=== PATIENT | female | born 1980 | race Caucasian/White ===

== ENCOUNTER 2023-04-28 08:32 | Outpatient (CLI) | payer OTHER, SELFPAY ==
--- NOTE | 2023-04-28 08:45 | CRLHL7_ITS ---
For Patients: As a result of the Cures Act, medical imaging exams and procedure reports are released immediately into your electronic medical record. You may view this report before your referring provider. If you have questions, please contact your health care provider. DIGITAL DIAGNOSTIC RIGHT MAMMOGRAM USING TOMOSYNTHESIS AND COMPUTER-AIDED DETECTION RIGHT BREAST ULTRASOUND INDICATION: Follow up a focal asymmetric density in the RIGHT breast. TECHNIQUE: Spot compression view of the RIGHT breast in the CC projection. A true ML view of the RIGHT breast was obtained. COMPARISON: Comparison April 18, 2023. FINDINGS: Breast composition: The breasts are heterogeneously dense, which may obscure small masses. Persistent nodule in the central upper RIGHT breast at the 12 o`clock position 6 cm from the nipple. Ultrasound is recommended and will be performed subsequently. Directed right breast ultrasound with this radiologist present. There is an oval-shaped cyst measuring 1.1 x 0.7 x 1.2 cm. This corresponds to the density identified on the recent mammogram and today`s diagnostic images. These findings were discussed in detail with the patient. No further workup or follow up is recommended. Annual mammography is recommended. IMPRESSION: 1. 1.1 x 0.7 x 1.2 cm oval shape cyst 12 o`clock position 6 cm from the RIGHT nipple. 2. Annual mammography recommended. BI-RADS Category 2: Benign A lay language report of this examination will be provided to the patient. Ladarius Tyson MD @04/28/2023 10:04:59 AM PT/Dictated by: Ladarius Tyson MD @ 04/28/2023 10:05:00 AM (Electronically Signed)
--- NOTE | 2023-04-28 09:15 | CRLHL7_ITS ---
For Patients: As a result of the Cures Act, medical imaging exams and procedure reports are released immediately into your electronic medical record. You may view this report before your referring provider. If you have questions, please contact your health care provider. PLEASE SEE DIGITAL DIAGNOSTIC RIGHT MAMMOGRAM PERFORMED SAME DAY CRL:edgar hernández/Dictated by: Ladarius Tyson MD @ 04/28/2023 10:05:00 AM (Electronically Signed)
== END 2023-04-28 08:33 | disposition home or self-care (01) ==
PROVIDERS: PCP Physician Assistant Medical; Visit Provider Physician Assistant
DX: R92.8 Other abnormal and inconclusive findings on diagnostic imaging of breast (principal); N63.10 Unspecified lump in the right breast, unspecified quadrant
CPT/HCPCS: 76642; 77065; G0279

== ENCOUNTER 2023-08-14 15:12 | Outpatient (CLI) | payer OTHER, SELFPAY | END 2023-08-14 15:13 | disposition home or self-care (01) | PROVIDERS: PCP Physician Assistant Medical; Visit Provider Physician Assistant Medical | DX: E78.5 Hyperlipidemia, unspecified (principal); E78.1 Pure hyperglyceridemia; R73.03 Prediabetes; N92.0 Excessive and frequent menstruation with regular cycle | CPT/HCPCS: 80053; 80061; 84443 ==

== ENCOUNTER 2023-10-08 09:58 | Outpatient (CLI) | payer OTHER, SELFPAY | END 2023-10-08 09:59 | disposition home or self-care (01) | PROVIDERS: PCP Physician Assistant Medical; Visit Provider Physician Assistant Medical | DX: N92.0 Excessive and frequent menstruation with regular cycle (principal); R53.83 Other fatigue | CPT/HCPCS: 80053; 82607; 83540; 83550; 84443; 86703; 86803 ==

== ENCOUNTER 2023-10-15 10:30 | Outpatient (CLI) | payer OTHER, SELFPAY ==
[2023-10-15 23:49] LABS: Chlamydia DNA Amplified* NOT DETECTED (No Detected); GC DNA Amplified* NOT DETECTED (No Detected)
== END 2023-10-15 10:31 | disposition home or self-care (01) ==
PROVIDERS: PCP Physician Assistant Medical; Visit Provider Physician Assistant Medical
DX: D69.6 Thrombocytopenia, unspecified (principal); D64.9 Anemia, unspecified; Z11.3 Encounter for screening for infections with a predominantly sexual mode of transmission
CPT/HCPCS: 86618; 87468; 87469; 87484; 87491; 87591; 87798

== ENCOUNTER 2023-10-16 03:30 | Outpatient (CLI) | payer OTHER, SELFPAY | END 2023-10-16 03:31 | disposition home or self-care (01) | LOC: NFLDREF 14:49 | PROVIDERS: PCP Physician Assistant Medical; Referring Provider Physician Assistant Medical; Visit Provider Physician Assistant Medical | DX: D64.9 Anemia, unspecified (principal); K21.9 Gastro-esophageal reflux disease without esophagitis | CPT/HCPCS: 87338 ==

== ENCOUNTER 2023-10-23 10:43 | Outpatient (CLI) | payer OTHER, SELFPAY ==
--- NOTE | 2023-10-23 11:00 | CRLHL7_ITS ---
For Patients: As a result of the Century Cures Act, medical imaging exams and procedure reports are released immediately into your electronic medical record. You may view this report before your referring provider. If you have questions, please contact your health care provider. INDICATION: IRREGULAR MENSTRUATION COMPARISON: none TECHNIQUE: 2D michelle scale and color Doppler images were acquired of the pelvis using a transabdominal and transvaginal approach. FINDINGS: Sonographic images demonstrate a normal size and smooth outer contour of the uterus. Uterus measures 7.8 cm in length by 3.8 cm in AP diameter by 4.7 cm in transverse dimension. Caesarean section scar. The endometrial lining measures 9 mm in composite thickness. Hyperechoic nodule within the endometrium measuring 10 x 5 x 10 millimeters. Endometrial fluid noted. Cervical nabothian cysts. The right ovary measures 3.6 x 2.1 x 2.0 cm in size and the left ovary measures 2.2 x 1.5 x 1.7 cm. The ovaries demonstrate normal arterial and venous blood flow on color Doppler analysis. There are no suspicious fluid collections within the cul-de-sac. IMPRESSION: Endometrial polyp measuring 1 cm. Dictated by Jamie Veloz MD @ 10/23/2023 11:49:05 AM (Electronically Signed)
== END 2023-10-23 10:44 | disposition home or self-care (01) ==
LOC: US 10:44
PROVIDERS: PCP Physician Assistant Medical; Visit Provider Physician Assistant Medical
DX: N92.6 Irregular menstruation, unspecified (principal); N84.0 Polyp of corpus uteri
CPT/HCPCS: 76830; 76856

== ENCOUNTER 2023-12-23 06:28 | Day surgery (SDC) | payer OTHER, SELFPAY ==
[2023-12-23 06:49] VITALS: BP 113/85; PULSE 85; RESP 16; TEMP 36.7; O2SAT 96; BMI 26.6
[2023-12-23 06:59] LABS: Ur HCG Qualitative* Negative (Negative)
[2023-12-23] MEDS: SODIUM CHLORIDE 0.9 % (FLUSH) 10 ML SYRINGE IVF (07:15)
[2023-12-23] MEDS: LACTATED RINGERS 1000 ML 1,000 ML 100 ML IV (07:15)
[2023-12-23] MEDS: SCOPOLAMINE 1 MG/3 DAY PATCH 1 PATCH TRANSDERMA (07:51)
--- NOTE | 2023-12-23 08:34 | W.ANESCHARGE ---
Anesthesia Charges Start Date/Time Anesthesia Start Date: 12/23/23 Anesthesia Start Time: 08:19 Stop Date/Time Anesthesia Stop Date: 12/23/23 Anesthesia Stop Time: 09:00
[2023-12-23] MEDS: BUPIVACAINE 0.25% 30 ML 10 ML INJECTION (08:38)
[2023-12-23] MEDS: LIDOCAINE 1% MDV 10 ML INJECTION (08:38)
--- NOTE | 2023-12-23 08:52 | P.GYNPRC_ITS ---
Procedure Note Date of procedure: 12/23/23 Pre-op diagnosis: Irregular heavy menses. Endometrial polyp by ultrasound. Post-op diagnosis: same Procedure: 1. Hysteroscopy. 2. D&C. 3. Polypectomy. 4. Mirena IUD insertion. Anesthesia: MAC and local (Paracervical block) Complications: None. Surgeon: Layne Westbrook MD Estimated blood loss (mL): 10 Pathology: specimen obtained, sent to pathology (Endometrial polyp and endometrial curettings sent as a single specimen.) Condition: stable Disposition: same day Findings: Endometrial polyp arising from the fundus. Normal tubal ostia bilaterally. Procedure Description: After obtaining informed consent, the patient was taken to the operating room where she received monitored anesthesia care. She was prepared and draped in the normal sterile fashion, in the dorsal lithotomy position. An open-sided bivalve speculum was introduced into the vagina and the cervix visualized. The anterior lip of the cervix was grasped with a single-tooth tenaculum for traction. A paracervical block was then administered using a total of 20 mL of a 50/50 mixture of 0.25% Marcaine and 1% lidocaine plain. The uterus was gently sounded. Sound length was 8 cm. The cervix was gently dilated to a #6 Hegar dilator. A hysteroscope was then advanced under direct visualization through the cervix into the uterine cavity. Sterile normal saline was used as distending medium. The uterine cavity was carefully inspected with the findings noted above. Pictures were taken for documentation purposes. The TruClear morcellator was inserted through the operating channel in the hysteroscope. The morcellator was used to remove the polyp in its entirety. The hysteroscope was then removed. The endometrial lining was then sharply curetted. A Mirena IUD was set to a length of 8 cm, the introducer was inserted through the cervical os to the level of the fundus, and the IUD was deployed. The introducer was re moved. The strings were trimmed to a 3 cm length. The tenaculum was removed. There was little bleeding from the tenaculum site, which was controlled with topical application of silver nitrate and direct pressure sponge stick. All instruments were then removed. The patient tolerated the procedure well. Sponge, lap, needle, and instrument counts reported as correct x2. The patient was taken to the recovery room awake in a stable condition. She received 30 mg of IV Toradol at the conclusion of the procedure.
[2023-12-23 09:00] VITALS: BP 143/109; PULSE 67; RESP 16; TEMP 36.8; O2SAT 98
[2023-12-23 09:05] VITALS: BP 134/90; PULSE 67; O2SAT 99
[2023-12-23 09:15] VITALS: BP 111/87; PULSE 77; RESP 16; O2SAT 99
[2023-12-23 09:30] VITALS: BP 102/88; PULSE 82; RESP 16; O2SAT 99
[2023-12-23] MEDS: ACETAMINOPHEN 500 MG TABLET 1000 MG PO (09:30)
[2023-12-23 09:50] VITALS: BP 119/87; PULSE 80; RESP 16; TEMP 36.7; O2SAT 98
--- NOTE | 2023-12-23 10:08 | W.ANESCHARGE ---
Anesthesia Charges Start Date/Time Anesthesia Start Date: 12/23/23 Anesthesia Start Time: 08:19 Stop Date/Time Anesthesia Stop Date: 12/23/23 Anesthesia Stop Time: 09:00
== END 2023-12-23 09:57 | disposition home or self-care (01) ==
PROVIDERS: PCP Physician Assistant Medical; Visit Provider Obstetrics & Gynecology
PROC: 0UDB8ZZ Extraction of Endometrium, Via Natural or Artificial Opening Endoscopic (ICD-10-PCS; CPT 58558; principal; 2023-12-23 08:05)
DX: N92.1 Excessive and frequent menstruation with irregular cycle (principal); N84.0 Polyp of corpus uteri; Z30.430 Encounter for insertion of intrauterine contraceptive device
CPT/HCPCS: 58558; 58300; 00952; 81025; 88305; A9270; J0665; J1885; J2250; J2405; J2704; J3010; J7120; J7298

== ENCOUNTER 2024-04-01 12:44 | Outpatient (RCR) | payer OTHER, SELFPAY ==
--- NOTE | 2024-02-04 15:14 | ONC.NURNOTE ---
Pt. left message to cancel her appointment with Dr. Green on 02/05/24, mortgage or loan underwriter left message on her voicemail to call and reschedule.
--- NOTE | 2024-04-29 12:30 | ONC.NURNOTE ---
Addendum entered by Cassi Ross RN 05/06/24 10:38: 6 months Original Note: Patient called with recommendations from Dr. Green is to come back in with repeat CBC and US Patient understands and will need visit in September 2024
== END 2024-09-28 23:59 | disposition home or self-care (01) ==
LOC: CCIC 12:44
PROVIDERS: PCP Physician Assistant Medical; Visit Provider Internal Medicine Hematology & Oncology
DX: D69.6 Thrombocytopenia, unspecified (principal)
CPT/HCPCS: 36415; 85025; 88112; 88184; 88185; 99202; 99203

== ENCOUNTER 2024-04-20 10:09 | Outpatient (CLI) | payer OTHER, SELFPAY ==
--- NOTE | 2024-04-20 10:15 | CRLHL7_ITS ---
For Patients: As a result of the Century Cures Act, medical imaging exams and procedure reports are released immediately into your electronic medical record. You may view this report before your referring provider. If you have questions, please contact your health care provider. BILATERAL SCREENING MAMMOGRAM WITH COMPUTER-AIDED DETECTION AND TOMOSYNTHESIS TECHNIQUE: CC and MLO views were obtained. These mammographic images have been obtained using full-field digital technique. These mammographic images were interpreted with the benefit of computer-aided detection. Breast Tomosynthesis was used in this interpretation. COMPARISON FILM: 04/18/23, 03/07/22, 02/19/21. FINDINGS: The breasts are heterogeneously dense, which may obscure small masses IMPRESSION: There is no radiographic evidence for malignancy. ASSESSMENT: BI-RADS Category 1: Negative RECOMMENDATION: Routine screening mammogram in 1 year. A lay language report of this examination will be provided to the patient. Jamie Veloz M.D. Diagnostic Radiologist [email or web address] ANUP/Dictated by: Jamie Veloz MD @ 04/20/2024 11:12:00 AM (Electronically Signed)
== END 2024-04-20 10:10 | disposition home or self-care (01) ==
LOC: MAMMO 10:10
PROVIDERS: PCP Physician Assistant Medical; Visit Provider Physician Assistant Medical
DX: Z12.31 Encounter for screening mammogram for malignant neoplasm of breast (principal); R92.2 Inconclusive mammogram
CPT/HCPCS: 77063; 77067

== ENCOUNTER 2024-04-22 14:41 | Outpatient (CLI) | payer OTHER, SELFPAY ==
--- NOTE | 2024-04-22 15:00 | CRLHL7_ITS ---
For Patients: As a result of the Century Cures Act, medical imaging exams and procedure reports are released immediately into your electronic medical record. You may view this report before your referring provider. If you have questions, please contact your health care provider. Indication: Thrombocytopenia. Evaluate spleen. Technique: Ultrasound examination the spleen was performed with a sector scanner. Comparison: None available Findings: The spleen is mildly enlarged, measuring 13.7 x 9.9 x 7.1 centimeters. There is no sign of any splenic mass. The vascular structures in the splenic hilum are normal in appearance. Impression: Mild splenomegaly. No sign of any splenic mass. Dictated by Luis Daniel Aceves MD @ 04/25/2024 11:21:15 PM (Electronically Signed)
== END 2024-04-22 14:42 | disposition home or self-care (01) ==
LOC: US 14:42
PROVIDERS: PCP Physician Assistant Medical; Visit Provider Internal Medicine Hematology & Oncology
DX: D69.6 Thrombocytopenia, unspecified (principal); R16.1 Splenomegaly, not elsewhere classified
CPT/HCPCS: 76705

== ENCOUNTER 2024-09-16 10:30 | Outpatient (CLI) | payer OTHER, SELFPAY | END 2024-09-16 10:31 | disposition home or self-care (01) | PROVIDERS: PCP Physician Assistant Medical; Visit Provider Physician Assistant Medical | DX: D64.9 Anemia, unspecified (principal); R73.03 Prediabetes; Z13.29 Encounter for screening for other suspected endocrine disorder; Z13.21 Encounter for screening for nutritional disorder | CPT/HCPCS: 80053; 80061; 82306; 83540; 83550; 84443; 86231; 86258; 86364 ==

== ENCOUNTER 2024-09-23 09:21 | Outpatient (CLI) | payer OTHER, SELFPAY ==
--- NOTE | 2024-09-23 10:00 | CRLHL7_ITS ---
For Patients: As a result of the Century Cures Act, medical imaging exams and procedure reports are released immediately into your electronic medical record. You may view this report before your referring provider. If you have questions, please contact your health care provider. INDICATION: Right abdominal mass. Diarrhea and anemia. TECHNIQUE: Volumetric helical scanning of the abdomen and pelvis was performed with 86 cc of Isovue 370 contrast material IV. Coronal and sagittal reconstructions were obtained. COMPARISON: None. FINDINGS: No abdominal mass or hernia is demonstrated. There is no evidence of bowel obstruction or inflammation. The appendix is normal. The liver is normal in size, shape and attenuation. The bile ducts are within normal limits. The spleen is mildly enlarged. The adrenal glands and pancreas are negative. The kidneys are unremarkable. No lymphadenopathy is evident. No free fluid is demonstrated. The uterus and ovaries are unremarkable. The lung bases are essentially clear, and heart size is normal. IMPRESSION: 1. No mass or hernia evident. 2. No bowel abnormality apparent. 3. Mild splenomegaly. Please note that all CT scans at this facility use dose modulation, iterative reconstruction, and/or weight-based dosing when appropriate to reduce radiation dose to as low as reasonably achievable. Dictated by Danilo Wei MD @ 09/24/2024 9:50:40 AM (Electronically Signed)
== END 2024-09-23 09:22 | disposition home or self-care (01) ==
LOC: CT 09:22
PROVIDERS: PCP Physician Assistant Medical; Visit Provider Physician Assistant Medical
DX: R19.00 Intra-abdominal and pelvic swelling, mass and lump, unspecified site (principal); R16.1 Splenomegaly, not elsewhere classified; D64.9 Anemia, unspecified; R63.4 Abnormal weight loss; R19.7 Diarrhea, unspecified
CPT/HCPCS: 74177; Q9967

== ENCOUNTER 2024-09-27 11:00 | Outpatient (CLI) | payer OTHER, SELFPAY ==
--- NOTE | 2024-09-27 11:00 | CRLHL7_ITS ---
For Patients: As a result of the Century Cures Act, medical imaging exams and procedure reports are released immediately into your electronic medical record. You may view this report before your referring provider. If you have questions, please contact your health care provider. CLINICAL HISTORY: Anemia, thrombocytopenia, and mild splenomegaly. COMPARISON: 09/23/2024, 10/23/2023 TECHNIQUE: Real time michelle scale imaging and color Doppler analysis was performed of the abdomen. FINDINGS: Sonographic imaging demonstrates normal size and uniform echotexture of the liver. The spleen measures 13.5 cm. The pancreas appears normal. The proximal abdominal aorta and IVC appear normal. There is no evidence of ascites. The gallbladder is of normal size and there is no evidence of sludge or stones within the gallbladder lumen. The gallbladder wall measures 2 mm in thickness. The common bile duct measures 6.7 mm in size within the ivonne hepatis. The kidneys appear symmetric. The right kidney measures 12.2 cm in length and the left kidney measures 12.9 cm. There is no evidence of a renal calculus or hydronephrosis. IMPRESSION: Mild splenomegaly. Remainder unremarkable. Dictated by Jamie Veloz MD @ 09/27/2024 12:15:58 PM (Electronically Signed)
== END 2024-09-27 11:01 | disposition home or self-care (01) ==
LOC: US 11:01
PROVIDERS: PCP Physician Assistant Medical; Visit Provider Clinical Nurse Specialist
DX: D64.9 Anemia, unspecified (principal); D69.6 Thrombocytopenia, unspecified; R16.1 Splenomegaly, not elsewhere classified; R63.4 Abnormal weight loss
CPT/HCPCS: 76700

== ENCOUNTER 2024-10-21 10:26 | Outpatient (RCR) | payer OTHER, SELFPAY | END 2025-04-19 23:59 | disposition home or self-care (01) | LOC: CCIC 10:26 | PROVIDERS: PCP Physician Assistant Medical; Visit Provider Internal Medicine Hematology & Oncology | DX: D69.6 Thrombocytopenia, unspecified (principal); D64.9 Anemia, unspecified | CPT/HCPCS: 99213; G0463 ==

== ENCOUNTER 2024-11-08 11:28 | Outpatient (CLI) | payer OTHER, SELFPAY ==
--- NOTE | 2024-11-08 13:15 | W.ANESCHARGE ---
Anesthesia Charges Start Date/Time Anesthesia Start Date: 11/08/24 Anesthesia Start Time: 12:15 Stop Date/Time Anesthesia Stop Date: 11/08/24 Anesthesia Stop Time: 13:12
== END 2024-11-08 11:29 | disposition home or self-care (01) ==
LOC: OP CLINIC 11:29
PROVIDERS: PCP Physician Assistant Medical; Visit Provider Surgery
DX: D50.9 Iron deficiency anemia, unspecified (principal); D12.3 Benign neoplasm of transverse colon; K57.30 Diverticulosis of large intestine without perforation or abscess without bleeding
CPT/HCPCS: 00813; 45381; 45385; 88305; J2704

== ENCOUNTER 2025-04-22 13:28 | Outpatient (CLI) | payer OTHER, SELFPAY ==
--- NOTE | 2025-04-22 13:40 | CRLHL7_ITS ---
For Patients: As a result of the Century Cures Act, medical imaging exams and procedure reports are released immediately into your electronic medical record. You may view this report before your referring provider. If you have questions, please contact your health care provider. INDICATION: BILATERAL SCREENING MAMMOGRAM, ASYMPTOMATIC 45 Y/O FEMALE COMPARISON: 04/20/2024, 04/18/2023, 03/07/2022 TECHNIQUE: Digital mammogram in CC and MLO projections including computer-aided detection (CAD) and tomosynthesis. BREAST COMPOSITION: The breasts are heterogeneously dense, which may obscure small masses. FINDINGS: No suspicious findings. ASSESSMENT: BI-RADS 1 Negative RECOMMENDATION: Annual screening mammogram. A lay language report of this examination will be provided to the patient. Dictated by: Jamie Veloz MD @ 04/25/2025 09:33:14 (Electronically Signed)
== END 2025-04-22 13:29 | disposition home or self-care (01) ==
LOC: MAMMO 13:28
PROVIDERS: PCP Physician Assistant Medical; Visit Provider Physician Assistant Medical
DX: Z12.31 Encounter for screening mammogram for malignant neoplasm of breast (principal); R92.333 Mammographic heterogeneous density, bilateral breasts
CPT/HCPCS: 77063; 77067

== ENCOUNTER 2025-05-16 08:32 | Outpatient (CLI) | payer OTHER, SELFPAY | END 2025-05-16 08:33 | disposition home or self-care (01) | LOC: NFLDREF 05-18 00:57 | PROVIDERS: PCP Physician Assistant Medical; Referring Provider Physician Assistant Medical; Visit Provider Physician Assistant Medical | DX: N39.0 Urinary tract infection, site not specified (principal) | CPT/HCPCS: 87086 ==

== ENCOUNTER 2025-06-07 11:12 | Outpatient (CLI) | payer OTHER, SELFPAY | END 2025-06-07 11:13 | disposition home or self-care (01) | LOC: NFLDREF 06-09 14:31 | PROVIDERS: PCP Physician Assistant Medical; Referring Provider Physician Assistant Medical; Visit Provider Physician Assistant Medical | DX: N39.0 Urinary tract infection, site not specified (principal) | CPT/HCPCS: 87086 ==

== ENCOUNTER 2025-06-20 08:34 | Outpatient (CLI) | payer OTHER, SELFPAY | END 2025-06-20 08:35 | disposition home or self-care (01) | LOC: NFLDREF 06-23 13:07 | PROVIDERS: PCP Physician Assistant Medical; Referring Provider Physician Assistant Medical; Visit Provider Physician Assistant | DX: R35.0 Frequency of micturition (principal); N92.0 Excessive and frequent menstruation with regular cycle; F41.8 Other specified anxiety disorders; N94.3 Premenstrual tension syndrome | CPT/HCPCS: 87086 ==